=== PATIENT | female | born 1985 | race Caucasian/White ===

== ENCOUNTER 2018-04-22 10:50 | Inpatient (IN) | payer OTHER ==
[~2018-04-22] VITALS: Ht 157.5 cm; Wt 88.6 kg
[~2018-04-22 10:50] MED LIST: DIPH25CA61 PO; DOCU-131 PO; FERR324T5 PO; FLUT12AE INH; IBUP-1222 PO; LABE200T6 PO; OXYC-302 PO; PREN1TAB60 PO
[2018-04-30] MEDS ORDERED: D5%-LACTATED RINGERS 1,000 ML IV SCH (05:04)
[2018-04-30] MEDS ORDERED: OXYTOCIN 30U/ 0.9% NaCL 500ML 500 ML IV ONE (05:04)
[2018-04-30] MEDS ORDERED: LACTATED RINGERS 1,000 ML IV SCH ×3 (05:04→17:58)
[2018-04-30 05:10] VITALS: BP 128/71
[2018-04-30] MEDS ORDERED: NEWBORN KIT ONE (05:19)
[2018-04-30] MEDS ORDERED: OXYTOCIN 30U/ 0.9% NaCL 500ML 500 ML ONE ×2 (05:20→19:31)
[2018-04-30] MEDS ORDERED: MISOPROSTOL 25 MCG TABLET ONE ×2 (05:20→09:37)
[2018-04-30] MEDS ORDERED: LIDOCAINE 1%, 20ML ONE (05:20)
[2018-04-30] MEDS ORDERED: MISOPROSTOL 200 MCG TABLET ONE (05:20)
[2018-04-30] MEDS ORDERED: CALCIUM CARBONATE 500 MG TAB.CHEW PO PRN (05:30)
[2018-04-30] MEDS: MISOPROSTOL 25 MCG TABLET VG PRN ×2 (05:30→09:50)
[2018-04-30] MEDS ORDERED: FENTANYL PF 100 MCG/2ML IVPush PRN (05:30)
[2018-04-30] MEDS ORDERED: FENTANYL PF 100 MCG/2ML IV PRN (05:30)
[2018-04-30] MEDS ORDERED: ONDANSETRON 2MG/ML, 2ML IVPush PRN ×2 (05:30→18:00)
[2018-04-30 05:36] LABS: BASOPHILS # (AUTO) 0.02 x10^3/uL (0-0.1); BASOPHILS % (AUTO) 0 % (0-1); EOSINOPHILS # (AUTO) 0.23 x10^3/uL (0-0.4); EOSINOPHILS % (AUTO) 2 % (1-7); LYMPHOCYTES # (AUTO) 2.04 x10^3/uL (1-3.4); LYMPHOCYTES % (AUTO) 14 % (22-44); MD NO; MEAN CORPUSCULAR HGB CONC 34.2 g/dL (32.4-35.8); MEAN CORPUSCULAR VOLUME 84.7 fL (80-100); MEAN PLATELET VOLUME 8.9 fL (7.4-10.4); MONOCYTES # (AUTO) 0.72 x10^3/uL (0.2-0.8); MONOCYTES % (AUTO) 5 % (2-9); NEUTROPHILS % (AUTO) 79 % (42-75); PLATELET COUNT 200 x10^3/uL (130-400); RED BLOOD COUNT 4.75 x10^6/uL (3.82-5.3); RED CELL DISTRIBUTION WIDTH 13.7 % (9.6-15.2)
[2018-04-30] MEDS ORDERED: FENTANYL/BUPIV./NS/PF 250 ML EPIDCONT SCH ×2 (07:24→17:58)
[2018-04-30] MEDS ORDERED: LACTATED RINGERS 1,000 ML IVBOLUS PRN (07:30)
[2018-04-30] MEDS ORDERED: FENTANYL PF 500 MCG, BUPIVACAINE/PF 0.5%, 30ML 62.5 ML in SODIUM CHLORIDE 0.9% 177.5 ML EPIDCONT SCH (08:00)
[2018-04-30] MEDS: OXYTOCIN 30U/ 0.9% NaCL 500ML 500 ML IV PRN (15:06)
[2018-04-30] MEDS ORDERED: BUPIVACAINE 0.25% ONE (17:27)
[2018-04-30] MEDS ORDERED: FENTANYL PF 100 MCG/2ML ONE (17:27)
[2018-04-30] MEDS ORDERED: LIDOCAINE/PF 1.5%-EPI 1:200K, 30ML ONE (17:29)
[2018-04-30] MEDS: LACTATED RINGERS 1,000 ML IV SCH (17:58)
[2018-04-30] MEDS ORDERED: EPHEDRINE 50 MG/ML, 1ML IVPush PRN (18:00)
[2018-04-30] MEDS ORDERED: ONDANSETRON 2MG/ML, 2ML ONE (23:45)
[2018-05-01] MEDS: LACTATED RINGERS 1,000 ML IV SCH ×3 (01:58→17:58)
[2018-05-01] MEDS ORDERED: METOCLOPRAMIDE 5 MG/ML, 2ML ONE (02:55)
[2018-05-01] MEDS ORDERED: SODIUM CITRATE/CITRIC ACID 30 ML UDC ONE (02:55)
[2018-05-01] MEDS: OXYTOCIN 30U/ 0.9% NaCL 500ML 500 ML IV PRN (04:38)
[2018-05-01] MEDS: OXYTOCIN 30U/ 0.9% NaCL 500ML 500 ML IV SCH ×2 (04:55→14:55)
[2018-05-01] MEDS ORDERED: METHYLERGONOVINE 0.2 MG/ML IM PRN (05:00)
[2018-05-01] MEDS ORDERED: ACETAMINOPHEN 325 MG TABLET PO PRN ×2 (05:00)
[2018-05-01] MEDS ORDERED: ONDANSETRON 2MG/ML, 2ML IV PRN (05:00)
[2018-05-01] MEDS ORDERED: MISOPROSTOL 200 MCG TABLET PR PRN (05:00)
[2018-05-01] MEDS ORDERED: HYDROcodone/APAP 5/325 TABLET PO PRN ×2 (05:00)
[2018-05-01] MEDS ORDERED: CALCIUM CARBONATE 500 MG TAB.CHEW PO PRN (05:00)
[2018-05-01] MEDS ORDERED: CARBOPROST TROMETHAMINE 250 MCG/ML, 1ML IM PRN (05:00)
[2018-05-01 07:00] VITALS: BP 128/76
[2018-05-01] MEDS: DOCUSATE 100 MG CAPSULE PO PRN ×2 (08:07→20:02)
[2018-05-01] MEDS: IBUPROFEN 600 MG TABLET PO PRN ×3 (08:07→20:58)
[2018-05-01] MEDS: PRENATAL VIT/IRON/FA 1 EACH TABLET PO SCH (09:00)
[2018-05-01 11:30] VITALS: BP 108/70
[2018-05-01 12:08] LABS: MEAN CORPUSCULAR HEMOGLOBIN 29.2 pg (27.0-34.8); MEAN CORPUSCULAR HGB CONC 34.1 g/dL (32.4-35.8); MEAN CORPUSCULAR VOLUME 85.6 fL (80-100); MEAN PLATELET VOLUME 8.7 fL (7.4-10.4); PLATELET COUNT 183 x10^3/uL (130-400); RED BLOOD COUNT 4.28 x10^6/uL (3.82-5.3)
[2018-05-01 12:57] LABS: BASOPHILS # (AUTO) 0.02 x10^3/uL (0-0.1); BASOPHILS % (AUTO) 0 % (0-1); EOSINOPHILS # (AUTO) 0.06 x10^3/uL (0-0.4); EOSINOPHILS % (AUTO) 0 % (1-7); LYMPHOCYTES % (AUTO) 6 % (22-44); MD SCAN; MONOCYTES % (AUTO) 4 % (2-9); NEUTROPHILS # (AUTO) 20.05 x10^3/uL (1.8-6.8); NEUTROPHILS % (AUTO) 89 % (42-75)
[2018-05-01 16:00] VITALS: BP 127/86
[2018-05-01 20:00] VITALS: BP 108/66
[2018-05-02] VITALS: BP 115/69
[2018-05-02] MEDS: OXYTOCIN 30U/ 0.9% NaCL 500ML 500 ML IV SCH ×2 (00:55→10:55)
[2018-05-02] MEDS: LACTATED RINGERS 1,000 ML IV SCH ×2 (01:58→09:58)
[2018-05-02] MEDS: IBUPROFEN 600 MG TABLET PO PRN ×2 (03:11→08:28)
[2018-05-02 03:14] VITALS: BP 113/67
[2018-05-02 08:05] VITALS: BP 114/73
[2018-05-02] MEDS: DOCUSATE 100 MG CAPSULE PO PRN (08:26)
[2018-05-02] MEDS: PRENATAL VIT/IRON/FA 1 EACH TABLET PO SCH (08:29)
[2018-05-02] MEDS ORDERED: IBUP-1222 PO (11:33)
[2018-05-02] MEDS ORDERED: SENN-92 PO (11:34)
== END 2018-05-02 11:44 | disposition home or self-care (01) | DRG 807 ==
LOC: LDIP 04-30 05:02 → 2NW 05-01 06:20
PROVIDERS: ADMIT Obstetrics & Gynecology; ATTEND Obstetrics & Gynecology
PROC: 10E0XZZ Delivery of Products of Conception, External Approach (ICD-10-PCS; principal; 2018-05-01)
PROC: 10907ZC Drainage of Amniotic Fluid, Therapeutic from Products of Conception, Via Natural or Artificial Opening (ICD-10-PCS; 2018-05-01)
PROC: 3E033VJ Introduction of Other Hormone into Peripheral Vein, Percutaneous Approach (ICD-10-PCS; 2018-05-01)
PROC: 0HQ9XZZ Repair Perineum Skin, External Approach (ICD-10-PCS; 2018-05-01)
PROC: 3E0R3BZ Introduction of Anesthetic Agent into Spinal Canal, Percutaneous Approach (ICD-10-PCS; 2018-05-01)
PROC: 00HU33Z Insertion of Infusion Device into Spinal Canal, Percutaneous Approach (ICD-10-PCS; 2018-05-01)
PROC: 3E0P7VZ Introduction of Hormone into Female Reproductive, Via Natural or Artificial Opening (ICD-10-PCS; 2018-05-01)
DX: O48.0 Post-term pregnancy (principal); Z37.0 Single live birth; O70.0 First degree perineal laceration during delivery; O99.52 Diseases of the respiratory system complicating childbirth; J45.909 Unspecified asthma, uncomplicated; Z3A.41 41 weeks gestation of pregnancy
CPT/HCPCS: 36415; 85025; 86850; 86900; G0378; J3010; J3490; J2590; J7050; J7120

== ENCOUNTER 2018-04-29 17:40 | Outpatient (CLI) | payer OTHER ==
[~2018-04-29] VITALS: Ht 157.5 cm; Wt 86.4 kg
[2018-04-29 18:14] VITALS: BP 134/77
[2018-04-29 18:24] LABS: BASOPHILS # (AUTO) 0.04 x10^3/uL (0-0.1); BASOPHILS % (AUTO) 0 % (0-1); EOSINOPHILS # (AUTO) 0.17 x10^3/uL (0-0.4); EOSINOPHILS % (AUTO) 1 % (1-7); LYMPHOCYTES # (AUTO) 1.97 x10^3/uL (1-3.4); LYMPHOCYTES % (AUTO) 14 % (22-44); MD NO; MEAN CORPUSCULAR HEMOGLOBIN 28.7 pg (27.0-34.8); MEAN CORPUSCULAR HGB CONC 33.8 g/dL (32.4-35.8); MEAN CORPUSCULAR VOLUME 84.9 fL (80-100); MEAN PLATELET VOLUME 8.7 fL (7.4-10.4); MONOCYTES # (AUTO) 0.77 x10^3/uL (0.2-0.8); MONOCYTES % (AUTO) 5 % (2-9); NEUTROPHILS # (AUTO) 11.35 x10^3/uL (1.8-6.8); NEUTROPHILS % (AUTO) 79 % (42-75); PLATELET COUNT 204 x10^3/uL (130-400); RED CELL DISTRIBUTION WIDTH 13.6 % (9.6-15.2)
[2018-04-29 18:28] LABS: MICROSCOPIC NOT IND
[2018-04-29 18:33] LABS: ALANINE AMINOTRANSFERASE 18 U/L (12-78); ALBUMIN 2.8 g/dL (3.4-5.0); CALCIUM 8.6 mg/dL (8.5-10.1); CREATININE 0.59 mg/dL (0.55-1.02)
[2018-04-29 18:35] LABS: ALKALINE PHOSPHATASE 195 U/L (45-117); ANION GAP 10 mmol/L (5-15); BILIRUBIN,TOTAL 0.5 mg/dL (0.2-1.0); CHLORIDE 109 mmol/L (98-107); TOTAL PROTEIN 6.3 g/dL (6.4-8.2)
== END 2018-04-29 19:00 | disposition home or self-care (01) ==
LOC: LDOP 17:40
PROVIDERS: ATTEND Obstetrics & Gynecology
DX: O42.913 Preterm premature rupture of membranes, unspecified as to length of time between rupture and onset of labor, third trimester (principal); Z3A.32 32 weeks gestation of pregnancy
CPT/HCPCS: 36415; 59025; 80053; 81003; 82570; 84112; 84156; 84550; 85025; 99211; G0463